=== PATIENT | female | born 1925 | race Caucasian/White ===

== ENCOUNTER 2016-09-21 17:47 | Emergency (ER) | payer OTHER ==
[~2016-09-21] VITALS: Ht 134.6 cm; Wt 50.7 kg
[2016-09-21 17:51] VITALS: TEMP 36.8; Ht 134.6 cm; Wt 50.7 kg
[2016-09-21] MEDS ORDERED: ACETAMINOPHEN 500 MG TAB PO STA (18:03)
--- NOTE | 2016-09-21 18:33 | DIAGNOSTIC IMAGING REPORT ---
RIGHT RIBS UNILATERAL MIN 2 VIEWS CLINICAL HISTORY: Right rib pain status post trauma COMPARISON STUDY: No previous studies for comparison. FINDINGS: 2 views are provided for interpretation. No pneumothorax is visualized. No right-sided rib fractures are evident. There is right basilar atelectasis. IMPRESSION: No evidence of pneumothorax. No right-sided rib fractures are visualized. Electronically signed by: Travis Mota M.D. 09/21/2016 6:32 PM Dictated Date/Time: 09/21/2016 6:31 PM
--- NOTE | 2016-09-21 18:42 | DIAGNOSTIC IMAGING REPORT ---
RIGHT SHOULDER MIN 2 VIEWS ROUTINE CLINICAL HISTORY: Right shoulder pain status post trauma COMPARISON: None. DISCUSSION: No fractures or dislocations are visualized. There are mild degenerative changes within the AC joint. IMPRESSION: No fractures or dislocations identified. Electronically signed by: Travis Mota M.D. 09/21/2016 6:41 PM Dictated Date/Time: 09/21/2016 6:40 PM
[2016-09-21] MEDS ORDERED: NAPR1TAB9 PO (18:59)
[2016-09-21] MEDS ORDERED: SENN-65 PO (18:59)
[2016-09-21] MEDS ORDERED: LTR510 PO (18:59)
[2016-09-21] MEDS ORDERED: CHOL1000 PO (18:59)
[2016-09-21] MEDS ORDERED: MBC75 PO (18:59)
[2016-09-21] MEDS ORDERED: PRLSR20 PO (18:59)
[2016-09-21] MEDS ORDERED: MELO7.5T5 PO (19:37)
[2016-09-21 19:46] VITALS: BP 128/88; PULSE 98; O2SAT 97
--- NOTE | 2016-09-21 23:36 | EMERGENCY ROOM VISIT NOTE ---
History First contact with patient: 17:57 Chief Complaint: SHOULDER PAIN Stated Complaint: PAIN IN SHOULDER AND DOWN ARM History of Present Illness The patient is a 89 year old female who presents to the Emergency Room with complaints of pain in her right shoulder after falling at home approximately 2 hours ago. The patient was walking through her house when she tripped over a box, and landed on her right shoulder. She did not strike her head or lose consciousness. She is experiencing some right-sided chest wall pain, but no shortness of breath. The patient evidently has some chronic difficulty with range of motion of the right shoulder, and she is unsure if her injury is making things worse or if this is her normal discomfort. She does not have numbness or paresthesias. No neck pain or back pain. She has not taken anything [id number] for her discomfort which she currently rates a 5/10. Review of Systems More than 10 systems were reviewed and otherwise negative with the exception of history of present illness. Past Medical/Surgical History No pertinent chronic medical disease Family History No pertinent family history Social History Smoking Status: Never Smoker Housing Status: lives with family Current/Historical Medications Scheduled Amlodipine/Benazepril (Lotrel 5MG/10MG), 1 CAP PO QAM Cholecalciferol (Vitamin D3), 1,000 INTER.UNIT PO DAILY Meloxicam (Mobic), 7.5 MG PO DAILY Omeprazole (Prilosec), 20 MG PO DAILY Scheduled PRN Meloxicam (Meloxicam), 7.5 MG PO DAILY PRN for Pain Naproxen (Aleve), 220 MG PO Q12 PRN for Pain Senna/Docusate Sod (Senokot S), 1 TAB PO DAILY PRN for Constipation Allergies Coded Allergies: Sulfa Antibiotics (Unverified Allergy, Unknown, unknown, 09/21/16) Uncoded Allergies: ANTIBIOTICS (Allergy, Unknown, UNKNOWN, 09/21/16) PT INDICATED SHE IS ALLERGIC TO MOST ANTIBIOTICS Physical Exam Vital Signs Date Time Temp Pulse Resp B/P (MAP) Pulse Ox O2 Delivery O2 Flow Rate FiO2 09/21/16 19:46 98 18 128/88 97 09/21/16 17:51 36.8 110 22 135/76 93 Room Air Pain Rating (0-10): 5.0 Physical Exam VITALS: Vitals are noted on the nurse's note and reviewed by myself. Vital signs stable. GENERAL: Well-developed, well-nourished, white female, who is in no acute distress and resting comfortably. Patient is cooperative with the examination. NECK: Supple without nuchal rigidity. No lymphadenopathy. No thyromegaly. Cervical spine is nontender. HEART: Regular rate and rhythm without murmurs gallops or rubs. LUNGS: Clear to auscultation bilaterally without wheezes, rales or rhonchi. No retractions or accessory muscle use. CHEST WALL: Mild tenderness appreciated over the right lateral fourth through sixth ribs. No flail chest or crepitus. MUSCULOSKELETAL: Tenderness appreciated across the supraspinatus distribution of the right shoulder into the right proximal humerus. No clavicular tenderness. Range of motion is decreased to abduction. Empty can was unable to be performed. There is no obvious deformity or laceration throughout the extremities NEURO: Patient was alert and oriented to person place and time. CN II through XII grossly intact. Medical Decision & Procedures ER Provider Diagnostic Interpretation: RIGHT RIBS UNILATERAL MIN 2 VIEWS CLINICAL HISTORY: Right rib pain status post trauma COMPARISON STUDY: No previous studies for comparison. FINDINGS: 2 views are provided for interpretation. No pneumothorax is visualized. No right-sided rib fractures are evident. There is right basilar atelectasis. IMPRESSION: No evidence of pneumothorax. No right-sided rib fractures are visualized. RIGHT SHOULDER MIN 2 VIEWS ROUTINE CLINICAL HISTORY: Right shoulder pain status post trauma COMPARISON: None. DISCUSSION: No fractures or dislocations are visualized. There are mild degenerative changes within the AC joint. IMPRESSION: No fractures or dislocations identified. Medications Administered Medications (Trade) Dose Ordered Sig/Lan Route Start Time Stop Time Status Last Admin Dose Admin Acetaminophen (Tylenol Tab) 1,000 mg NOW STAT PO 09/21/16 18:03 09/21/16 18:05 DC 09/21/16 18:10 1,000 MG ED Course Physical exam and history were performed. Nursing notes, EMR, and Medication List were personally reviewed. Patient appears to have suffered a mechanical fall at home with subsequent injury to her right shoulder. She appears to have acute on chronic discomfort. There is also some mild right-sided rib tenderness. I did offer the patient pain medication, and she was willing to take Tylenol. X-rays were obtained and do not show evidence of acute fractures or dislocations. There is no pneumothorax. Overall the patient appears stable for discharge home. She does have a good support network at home, but should be following with her primary care physician in the next few days for a recheck. I will provide the patient a short prescription of Motrin as evidently she has taken this in the past and done well with it. The patient will be invited back to the ER anytime with any new, worsening, or concerning symptoms. The chart was completed utilizing [employer] Speech Voice Recognition Software. Grammatical errors, random word insertions, pronoun errors, and incomplete sentences are an occasional consequence of this system due to software limitations, ambient noise, and hardware issues. Any formal questions or concerns about the content, text, or information contained within the body of this dictation should be directly addressed to the provider for clarification. . Medical Decision Differential diagnoses includes, but is not limited to: Sprain, strain, fracture , dislocation, subluxation, contusion, and others Impression Primary Impression: Injury of right shoulder Additional Impression: Fall Departure Information Dispostion Home / Self-Care Condition GOOD Prescriptions Meloxicam (Mobic) 7.5 Mg Tab 7.5 MG PO DAILY for 7 Days, #7 TAB Prov: Dexter Farley PA-C 09/21/16 Referrals Clifford Crowder D.O. Forms HOME CARE DOCUMENTATION FORM, IMPORTANT VISIT INFORMATION Patient Instructions My [facility] Additional Instructions You were seen and evaluated today on an emergency basis only. This is not a substitute for, or an effort to provide, complete comprehensive medical care. It is not possible to recognize and treat all injuries or illnesses in a single emergency department visit. For this reason it is recommended that you followup with orthopedics, Dr. Crowder' s office, in the morning to arrange follow-up visit next week. Wear your arm sling for comfort. You may take Mobic 7.5 mg once daily for pain control Practice range of motion exercises as much as tolerated You are welcome to return to the emergency department anytime with new, worsening, or concerning symptoms. Problem Qualifiers
== END 2016-09-21 19:47 | disposition home or self-care (01) ==
LOC: C.EDB 17:50 → C.EDD 19:47
DX: S49.91XA Unspecified injury of right shoulder and upper arm, initial encounter (principal); W01.0XXA Fall on same level from slipping, tripping and stumbling without subsequent striking against object, initial encounter; Y92.019 Unspecified place in single-family (private) house as the place of occurrence of the external cause; R07.81 Pleurodynia; Z79.899 Other long term (current) drug therapy; Z88.2 Allergy status to sulfonamides